=== PATIENT | female | born 1950 | race Caucasian/White ===

== ENCOUNTER 2017-02-20 18:26 | Emergency (ER) | payer OTHER ==
[~2017-02-20] VITALS: Ht 162.6 cm; Wt 119.8 kg
--- NOTE | ~2017-02-20 | EKG ---
[place] [address] [facility] [employer] [place] [address] ELECTROCARDIOGRAM REPORT Name: DORA FRENCH Room #: [facility]Ye[facility] [id number] Admission: 02/20/17 Attend Phys: Discharge: 02/20/17 Date of : 52 Report #: [id number] THIS REPORT FOR: //name// [facility] ED Test Date: 2017-02-20 Test Time: 20:43:32 Pat Name: DORA FRENCH Department: Room: Gender: F [employer]: JLEIXE : 1950 Requested By: Jana Quarles Order Number: [id number] MD: James Sánchez Measurements Intervals [place] Rate: 66 P: 49 [place]: 129 QRS: -4 QRSD: 86 T: 106 QT: 424 QTc: 445 Interpretive Statements Sinus rhythm Nonspecific T abnormalities, lateral leads Compared to ECG 05/30/2012 01:43:41 T-wave abnormality now present Sinus bradycardia no longer present Electronically Signed On 02-23-2017 8:31:49 CDT by James Sánchez [email or web address] <ELECTRONICALLY SIGNED> By: James Sánchez MD 02/23/17 0831 42 42 MD AZAEL Decker
--- NOTE | ~2017-02-20 | EKG ---
[address] [place] [address] ELECTROCARDIOGRAM REPORT Name: DORA FRENCH Room #: [facility]P [facility] [id number] Admission: 02/20/17 Attend Phys: Discharge: 02/20/17 Date of : 52 Report #: [id number] THIS REPORT FOR: //name// [facility] ED Test Date: 2017-02-20 Test Time: 18:32:27 Pat Name: DORA FRENCH Department: Room: Gender: F [employer] Former [employer]: OPAL : 1950 Requested By: Jana Quarles Order Number: [id number] MD: James Sánchez Measurements Intervals [place] Rate: 77 P: 56 [place]: 138 QRS: -10 QRSD: 80 T: 100 QT: 390 QTc: 442 Interpretive Statements Sinus arrhythmia Nonspecific T abnormalities, lateral leads Compared to ECG 05/30/2012 01:43:41 T-wave abnormality now present Sinus bradycardia no longer present Electronically Signed On 02-23-2017 8:29:59 CDT by James Sánchez [email or web address] <ELECTRONICALLY SIGNED> By: James Sánchez MD 02/23/17 08 31 31 James Sánchez MD /JERI
[~2017-02-20 18:26] MED LIST: ALVESCO6.1 GM INH; ASPIRIN81 M2 PO; CYCLOBENZAPRINE10 MG PO; GLUCOPHAGE1000 MG PO; MIRAPEX0.25 MG PO; MOBIC15 MG PO; MOM; NIASPAN 500 MG500 M1 PO; NOVOLOG MI100 UNIT/2; PROTONIX40 M2 PO; SIMVASTATIN40 MG PO; SYNTHROID88 MCG PO; VENTOLIN HFA 1818 GM INH; ZESTORETIC 10-1 EAC1 PO
[2017-02-20 18:48] LABS: HEMATOCRIT 44.5 % (37.0-47.0); HEMOGLOBIN 15.4 gm/dL (12.0-15.0); MCH 31.7 pg (26.0-34.0); MCHC 34.6 g/dL (28.0-37.0); MCV 91.7 fL (80.0-100.0); PLATELET COUNT 224 thou/uL (150-400); RBC 4.86 mil/uL (4.20-5.00); RDW 14.2 % (10.5-14.5); WBC 10.3 thou/uL (4.0-11.0)
[2017-02-20 18:49] LABS: MANUAL DIFF YES
[2017-02-20 18:57] LABS: ANION GAP 6 mmol/L (7-16); BUN 21 mg/dL (7-18); CALCIUM 8.5 mg/dL (8.5-10.1); CHLORIDE 100 mmol/L (98-107); CO2 28 mmol/L (21-32); CREATININE 1.6 mg/dL (0.6-1.0); GLUCOSE 248 mg/dL (74-106); SODIUM 134 mmol/L (136-145)
[2017-02-20 19:03] LABS: APTT 25.9 Seconds (24.5-32.8); PROTIME 10.7 Seconds (9.3-11.4)
[2017-02-20 19:06] LABS: ABSOLUTE NEUTROPHILS 5.8 thou/uL (1.4-8.2); TOTAL CELL COUNT 100
[2017-02-20 19:08] LABS: ALBUMIN 3.6 g/dL (3.4-5.0); ALKALINE PHOSPHATASE 63 U/L (46-116); NT-PRO BRAIN NAT PEPTIDE 41 pg/mL (<300); SGOT 47 U/L (15-37); SGPT 44 U/L (30-65); TOTAL BILIRUBIN 0.4 mg/dL (<0.1-1.0); TOTAL PROTEIN 7.8 g/dL (6.4-8.2); TROPONIN-I < 0.04 ng/mL (<0.04-0.07)
[2017-02-20] MEDS ORDERED: GLIPIZIDE ER10 MG PO (19:29)
[2017-02-20] MEDS ORDERED: JARDIANCE10 MG PO (19:30)
[2017-02-20] MEDS ORDERED: XANAX 0.25 MG0.25 MG PO (19:30)
[2017-02-20] MEDS ORDERED: NEURONTIN 300300 M1 PO (19:30)
[2017-02-20] MEDS ORDERED: HYOSCYAMINE0.125 M1 SL (19:30)
[2017-02-20 21:24] VITALS: BP 131/71
== END 2017-02-20 21:27 | disposition home or self-care (01) ==
LOC: ER 18:26
PROVIDERS: Emergency Medicine
DX: R00.2 Palpitations (principal); R42 Dizziness and giddiness; I10 Essential (primary) hypertension; E11.9 Type 2 diabetes mellitus without complications; G47.30 Sleep apnea, unspecified; E78.00 Pure hypercholesterolemia, unspecified; Z90.49 Acquired absence of other specified parts of digestive tract; Z88.5 Allergy status to narcotic agent